=== PATIENT | male | born 1940 | race Caucasian/White ===

== ENCOUNTER 2018-03-30 06:18 | Day surgery (SDC) | payer OTHER ==
[2018-03-28 11:43] VITALS: BMI 27.4
[2018-03-30] MEDS ORDERED: fentaNYL CITRATE 250 MCG/5 ML VIAL ONE (07:08)
[2018-03-30] MEDS ORDERED: MIDAZOLAM HCL 2 MG/2 ML SINGLE DOSE VIAL ONE (07:09)
[2018-03-30] MEDS ORDERED: SUCCINYLCHOLINE CHLORIDE 200 MG/10 ML VIAL ONE (07:09)
[2018-03-30] MEDS ORDERED: PROPOFOL 20 ML ONE ×3 (07:09)
[2018-03-30] MEDS ORDERED: ROCURONIUM BROMIDE 50 MG/5 ML VIAL ONE (07:09)
[2018-03-30] MEDS ORDERED: LIDOCAINE HCL 2% JELLY (5 ML/TUBE) ONE ×2 (07:10→10:11)
[2018-03-30] MEDS ORDERED: THROMBIN (BOVINE) 5,000 UNIT VIAL TP ONE ×2 (07:20→09:05)
[2018-03-30] MEDS ORDERED: GELATIN, ABSORBABLE 100 EACH SPONGE TP ONE ×2 (07:20→09:06)
[2018-03-30] MEDS ORDERED: ePHEDrine SULFATE 50 MG/1 ML AMPULE ONE (08:36)
[2018-03-30] MEDS ORDERED: NEOSTIGMINE METHYLSULFATE 0.5 MG/ML - 10 ML MDV ONE (10:10)
[2018-03-30] MEDS ORDERED: ONDANSETRON 4 MG/2 ML VIAL ONE (10:11)
[2018-03-30] MEDS ORDERED: ceFAZolin SODIUM 1 GM VIAL ONE (10:11)
[2018-03-30] MEDS ORDERED: GLYCOPYRROLATE 0.2 MG/1 ML VIAL ONE (10:11)
[2018-03-30] MEDS ORDERED: DEXAMETHASONE SOD PHOSPHATE 4 MG/1 ML VIAL ONE (10:11)
[2018-03-30] MEDS ORDERED: BACITRACIN 15 GM TUBE TOPICAL OINTMENT ONE (10:14)
[2018-03-30] MEDS ORDERED: BUPIVACAINE HCL/PF 2.5 MG/ML - 30 ML VIAL IJ ONE (10:19)
[2018-03-30] MEDS ORDERED: oxyCODONE HCL 5 MG TABLET PO PRN (10:35)
[2018-03-30] MEDS ORDERED: ONDANSETRON 4 MG/2 ML VIAL IVPUSH PRN (10:35)
[2018-03-30] MEDS ORDERED: PROMETHAZINE HCL 25 MG/1 ML VIAL IVPUSH PRN (10:35)
--- NOTE | 2018-03-30 10:54 | OP ---
Operative Note - Note: Operative Date: 03/30/18 Pre-Operative Diagnosis: post lamiectomy syndrome Operation: T7-T8 Laminotomy with insertion of spinal cord stimulator paddle and permanent generator, intraop impedance testing Implants: spinal cord stimulator and permanent generator Post-Operative Diagnosis: Same as Pre-op Surgeon: Hari Jacob Leaf Fat Scraper: La Nuñez Anesthesiologist/BUTTON PUNCHER: Andrew Hinson Anesthesia: General Estimated Blood Loss (mls): 10 Fluid Volume Replaced (mls): 800 Operative Report Dictated: Yes
--- NOTE | 2018-03-30 10:55 | SURG ---
Surgery Hander In Note Hander In: La Nuñez PA-C Date of Service: 03/30/18 Diagnosis: post laminectomy syndrome Procedure: T7-T8 Laminotomy with insertion of spinal cord stimulator paddle and permanent generator, intraop impedance testing I was present for the entirety of the operative procedure. For further detail, please refer to operative report. Visit type - Case Type Case Type: Scheduled - Emergency Emergency Visit: No - New patient This patient is new to me today: Yes Date on this admission: 03/30/18
[2018-03-30] MEDS ORDERED: DEXAMETHASONE SOD PHOSPHATE/PF 10 MG/ML SDV ONE (10:57)
[2018-03-30] MEDS ORDERED: BENZOCAINE/MENTH/CETYLPYRD CL 1 EACH LOZENGE MM PRN (11:01)
--- NOTE | 2018-03-30 12:28 | OP ---
DATE OF OPERATION: 03/30/2018 PREOPERATIVE DIAGNOSES: 1. Post laminectomy syndrome. 2. Chronic low back pain. POSTOPERATIVE DIAGNOSES: 1. Post laminectomy syndrome. 2. Chronic low back pain. PROCEDURES: 1. Thoracic laminotomy at T7 for insertion of spinal cord stimulator paddle. 2. Insertion of WaveWriter from [employer] Spinal Cord Stimulator Generator. 3. Intraoperative impedance testing. SURGEON: Hari Jacob MD ACCOUNT DEVELOPMENT EXECUTIVE: EDUAR Nguyen ANESTHESIA: General. INDICATIONS: The patient is a 77-year-old male who has had a history of extensive lumbar surgery and chronic back pain. The patients pain has been refractory to management with multiple oral medications, and he has had chronic debilitating pain. He underwent a spinal cord stimulator trial, which showed excellent relief of his chronic back pain. He is indicated for permanent spinal cord generator and paddle insertion. DESCRIPTION OF THE PROCEDURE: The patient was brought into the operating room via stretcher and transferred onto the OR table in the prone position. He was placed in chest rolls and pillows, and all bony prominences were padded. The back was then prepped and draped in the usual sterile fashion. Under fluoroscopic guidance, an incision was then mapped out for entry at the T7 lamina. Time-out was performed and prophylactic IV antibiotics were administered. An appropriate incision was then made, and dissection was carried down to the level of the fascia. The fascia was split with electrocautery exposing the subperiosteal spine at the appropriate level. A hemilaminotomy of the T7 inferior lamina was then performed exposing the ligamentum flavum. The flavum was then excised exposing the thoracic spinal cord. A [employer] Paddle was then inserted under fluoroscopic guidance to the appropriate level spanning T7 and extending into the vertebral body of T6. Impedance testing showed excellent result. An incision was then made over the right iliac crest, and a subcutaneous pocket was then made with blunt dissection. A tunneler was then used to tunnel the leads. Prior to tunneling the leads, I did secure No. 1 and No. 4 leads with [employer] Clik X anchors and suturing device. Tension loops were then left in the upper thoracic spine. The leads were then connected to the generator, and impedance testing again showed excellent results with the generator in the pocket. The leads were then locked into place, and the tension loop was placed posterior to the battery, and the battery was then placed into the pocket. The wounds were then irrigated, and the deep fascia was closed with No. 1 Vicryl suture, the deep dermal tissue approximated with 2-0 Vicryl suture, and skin was closed with 3-0 nylon suture. Sterile dressing was applied. The patient was then flipped into the supine position having tolerated the procedure well. EDUAR Nguyen, was necessary throughout the case to properly assist in the retraction of the neural elements and placement of the generator. This could not have been done without a skilled television production assistant. Magdalena [id number]
[2018-03-30] MEDS ORDERED: oxyCODONE HCL 5 MG TABLET ONE (14:43)
[2018-03-30] MEDS ORDERED: CEFAZOLIN 1 GM/D5W 1 GM/50 ML BAG ONE (14:43)
[2018-03-30] MEDS ORDERED: CEFAZOLIN 1 GM/D5W 1 GM/50 ML BAG IVPB ONE (15:00)
[2018-03-30 15:48] VITALS: BP 126/60; PULSE 52; TEMP 98
[2018-03-31] MEDS ORDERED: [UNRECOGNIZED DRUG - OTHER] PO SCH (10:00)
[2018-03-31] MEDS ORDERED: PRASTERONE PO SCH (10:00)
[2018-03-31] MEDS ORDERED: LOSARTAN POTASSIUM 25 MG TABLET PO SCH (10:00)
[2018-03-31] MEDS ORDERED: MULTIVITAMINS (DAILY MVI) TABLET (FP) PO SCH (10:00)
[2018-03-31] MEDS ORDERED: ASCORBIC ACID 500 MG TABLET (FP) PO SCH (10:00)
[2018-03-31] MEDS ORDERED: [UNRECOGNIZED DRUG - OTHER] PO SCH (10:00)
[2018-03-31] MEDS ORDERED: MAGNESIUM OXIDE 400 MG TABLET (FP) PO SCH (10:00)
[2018-03-31] MEDS ORDERED: ARGININE 1000 MG PO SCH (10:00)
[2018-03-31] MEDS ORDERED: PATIENT'S OWN MEDICATION (NON-FORMULARY) (Ubidecarenone/Vit E Acet [Co Q-10 100 Mg Softgel PO SCH (10:00)
[2018-03-31] MEDS ORDERED: VANADYL SULFATE PO SCH (10:00)
[2018-03-31] MEDS ORDERED: SAW PALMETTO 160 MG PO SCH (10:00)
== END 2018-03-30 16:00 | disposition home or self-care (01) ==
LOC: FASU 06:18
PROVIDERS: ATTEND Orthopaedic Surgery Orthopaedic Surgery of the Spine
PROC: 4B00XVZ Measurement of Central Nervous Stimulator, External Approach (ICD-10-PCS; 2018-03-30)
PROC: 0JH70EZ Insertion of Multiple Array Rechargeable Stimulator Generator into Back Subcutaneous Tissue and Fascia, Open Approach (ICD-10-PCS; 2018-03-30)
PROC: 00HU0MZ Insertion of Neurostimulator Lead into Spinal Canal, Open Approach (ICD-10-PCS; principal; 2018-03-30 08:00)
DX: M96.1 Postlaminectomy syndrome, not elsewhere classified (principal); M54.5 Low back pain; G89.29 Other chronic pain
CPT/HCPCS: 63655; 63685; 95972; C1778; L8679; 72070-TC-FY; 94760